=== PATIENT | male | born 1935 | race Caucasian/White ===

== ENCOUNTER 2018-04-27 21:21 | Observation (INO) ==
[2018-04-27] MEDS ORDERED: Sod Chloride 0.9% Inj 1,000 ML IV.CONT SCH (23:15)
--- NOTE | 2018-04-27 23:23 | ED ---
HPI General Chief complaint: GI Bleed Stated complaint: rectal bleeding x 4 hrs Time Seen by Provider: 04/27/18 23:10 Source: patient Mode of arrival: ambulatory Limitations: no limitations History of Present Illness HPI Narrative: 82-year-old male presents to the emergency department by private transportation for complaint of 5 times of red blood per rectum over the past 4 hours. No fever no chills no nausea no vomiting no near syncope or syncope no chest pain or shortness of breath no abdominal pain. Patient states that he has had no trauma or injury. No prior history of GI bleed. Patient has undergone colonoscopy within the past 2 years according to him and reportedly the study was normal. Patient takes aspirin daily but no other blood thinning agents. Patient denies NSAID use. Patient's had no epigastric pain. Patient has had no weight loss or weight change. Patient had no trauma or injury. Patient continues to make good urine output and no flank pain. MD complaint: Reports gross hematochezia Onset (ago): hour(s) (4) Pain Consistency: constant Severity: severe Relieving factors: none Exacerbating factors: none Context: Denies history of GI bleed, liver disease, hemorrhoids, swallowed FB, rectal trauma, alcohol abuse, known esophageal varices, medication/supplement use, foreign travel, unusual food, anticoagulant use and near syncope Associated symptoms: Reports denies other symptoms; Denies abdominal pain, nausea, vomiting, epistaxis, fever, chills, headaches, loss of appetite, malaise , easy bruising, rash, other bleeding, shortness of breath, syncope and weakness Treatments Prior to Arrival: Reports none Related Data Home Medications Medication Instructions Recorded Confirmed Unable to Obtain Home Meds 04/27/18 04/27/18 Allergies Allergy/AdvReac Type Severity Reaction Status Date / Time iodine Allergy Severe Respiratory Unverified 04/27/18 23:10 Failure potassium iodide Allergy Severe Difficulty Unverified 04/27/18 23:10 Breathing povidone-iodine Allergy Severe Difficulty Unverified 04/27/18 23:10 Breathing sodium iodide Allergy Severe Difficulty Unverified 04/27/18 23:10 Breathing sodium iodide Allergy Severe Difficulty Unverified 04/27/18 23:10 Breathing MECURY Allergy Severe Difficulty Uncoded 04/27/18 23:10 Breathing MECUROCHROME / MERTHIOLATE AdvReac Mild Difficulty Uncoded 04/27/18 23:10 Breathing Review of Systems ROS: all other systems reviewed are negative PMFSH History History Provided By: Medical Record (Peripheral vascular disease CAD SDH) Social History Social History Substance History: No History of Abuse Smoking Status: Former smoker How Often Do You Have a Drink Containing Alcohol: Monthly or less Recent Travel in [facility] within the Last 8 Weeks: No Recent Out of Country Travel within the Last 8 Weeks: No Exam Narrative Exam Narrative: GENERAL: Well-nourished, well-developed patient. SKIN: Focused skin assessment warm/dry. HEAD: Normocephalic. EYES: No scleral icterus. No injection or drainage. NECK: Supple, trachea midline. No JVD or lymphadenopathy. CARDIOVASCULAR: Regular rate and rhythm without murmurs, gallops, or rubs. RESPIRATORY: Breath sounds equal bilaterally. No accessory muscle use. GASTROINTESTINAL: Abdomen soft, non-tender, nondistended. Rectal exam: Normal sphincter tone red blood per rectum no clots no fissure no prolapsed hemorrhoids no palpable mass Hemoccult positive MUSCULOSKELETAL: No cyanosis, or edema. BACK: Nontender without obvious deformity. No CVA tenderness. Course Initial Documented Vital Signs Temperature 98.2 F 04/27/18 21:48 Pulse Rate 116 H 04/27/18 21:48 Respiratory Rate 16 04/27/18 21:48 Blood Pressure 170/78 H 04/27/18 21:48 Pulse Oximetry 98 04/27/18 21:48 Last Documented Vital Signs Temperature 98.2 F 04/27/18 21:48 Pulse Rate 102 H 04/28/18 00:10 Respiratory Rate 20 04/28/18 00:10 Blood Pressure 204/84 H 04/28/18 00:10 Pulse Oximetry 99 04/28/18 00:10 Medical Decision Making MDM Narrative Medical decision making narrative: . Patient's case discussed with medicine service for admission Patient does take aspirin daily for history of cardiac disease. No near syncope or syncope. No shortness of breath. No nausea no vomiting no abdominal pain.82-year-old male with larissa red blood per rectum x5 episodes in the past 4 hours. No prior history of rectal bleeding. Colonoscopy 2 years ago was reportedly normal cannot recall who did the study. No prior history of rectal bleeding or GI bleeding. Patient denies NSAID use. Patient placed on hall monitor IV access obtained specimens collected and sent for resulting occluding type and screen patient given a normal saline bolus and placed on Protonix infusion. Concern for lower GI bleed CT abdomen pelvis ordered. Patient complained of heartburn had received Protonix bolus and infusion; Zofran 4 mg IV administered, small amount of stomach contents emesis without coffee-ground emesis or hematemesis; EKG sinus rhythm with no acute ST elevation or injury pattern change noted mild ST segment flattening laterally. Troponin I less than 0.02. CBC is automated differential total white cell count is normal at 6800 hemoglobin stable at 11.5 with a normal range platelet count of 169,000. Coagulation studies are within normal range. Metabolic panel is within normal limits with normal range potassium of 3.8 bicarb of 29 mild elevation of glucose at 188. Creatinine are normal range with a BUN of 14 and a creatinine of 0.86 magnesium is 1.9 within normal limits calcium 8.7 troponin I is performed which is less than 0.02 Chest x-ray is negative for acute process CT abdomen pelvis reveals no acute intra-abdominal process Patient's vital signs have remained stable and will patient will be admitted for lower GI bleed serial hemoglobins and has had type and screen ordered. Patient's case discussed with medicine service for intermediate care admission; at this point time hemoglobin is stable at 11.5 however patient is at high risk for rapid decompensation in view of gross hematochezia. Patient heart rate has improved to 78. Patient reminds hypertensive and cannot recall his home medications. Patient has been typed and screened and in addition 2 units of packed cells have been ordered to be placed on hold patient will be admitted to intermediate care and GI consult in a.m. No further bleeding or tenesmus since initial presentation to the emergency department for evaluation. Medical Screen Exam Complete: Yes Emergency Medical Condition: Yes Differential Diagnosis Differential Diagnosis: Rectal bleeding, anemia, diverticulitis colitis mass upper GI bleed coagulopathy AVM Medical Records Medical records reviewed: Yes I reviewed the patient's medical records. Lab Data Lab results reviewed: Yes I reviewed the patient's lab results. Result diagrams: 04/27/18 23:30 04/27/18 23:30 Lab Results 04/27/18 04/27/18 04/27/18 Range/Units 23:30 23:30 23:30 CBC w Diff Auto diff final WBC 6.8 (4.0-11.0) th/mm3 RBC 3.68 L (4.50-5.90) mil/mm3 Hgb 11.5 L (13.0-17.0) gm/dL Hct 35.5 L (39.0-51.0) % MCV 96.6 (80.0-100.0) fL MCH 31.3 (27.0-34.0) pg MCHC 32.3 (32.0-36.0) % RDW 14.0 (11.6-17.2) % Plt Count 169 (150-450) th/mm3 MPV 8.0 (7.0-11.0) fL Neut % (Auto) 66.0 (16.0-70.0) % Lymph % (Auto) 25.7 (9.0-44.0) % Phelps % (Auto) 6.4 (0.0-8.0) % Eos % (Auto) 1.2 (0.0-4.0) % Baso % (Auto) 0.7 (0.0-2.0) % Neut # (Auto) 4.5 (1.8-7.7) th/mm3 Lymph # (Auto) 1.8 (1.0-4.8) th/mm3 Phelps # (Auto) 0.4 (0.0-0.9) th/mm3 Eos # (Auto) 0.1 (0.0-0.4) th/mm3 Baso # (Auto) 0.0 (0.0-0.2) th/mm3 WBC Differential . Differential Comment . PT 10.4 (9.8-11.6) sec INR 1.0 Ratio APTT 26.1 (23.4-31.7) sec Sodium 138 (136-145) meq/L Potassium 3.8 (3.5-5.1) meq/L Chloride 101 (98-107) meq/L Carbon Dioxide 29.3 (21.0-32.0) meq/L Anion Gap 8 (5-15) meq/L BUN 14 (7-18) mg/dL Creatinine 0.86 (0.60-1.30) mg/dL Estimated GFR 85 L (>89) mL/min Random Glucose 188 H (74-106) mg/dL Calcium 8.7 (8.5-10.1) mg/dL Magnesium 1.9 (1.5-2.5) mg/dL Total Bilirubin 0.4 (0.2-1.0) mg/dL AST 14 L (15-37) U/L ALT 22 (12-78) U/L Alkaline Phosphatase 59 (45-117) U/L Ammonia (11-32) mcmol/L Troponin I Less than 0.02 L (0.02-0.05) ng/mL Total Protein 7.2 (6.4-8.2) g/dL Albumin 3.8 (3.4-5.0) g/dL Lipase 149 (73-393) U/L Blood Type Blood Type Recheck 04/27/18 04/27/18 Range/Units 23:30 23:30 CBC w Diff WBC (4.0-11.0) th/mm3 RBC (4.50-5.90) mil/mm3 Hgb (13.0-17.0) gm/dL Hct (39.0-51.0) % MCV (80.0-100.0) fL MCH (27.0-34.0) pg MCHC (32.0-36.0) % RDW (11.6-17.2) % Plt Count (150-450) th/mm3 MPV (7.0-11.0) fL Neut % (Auto) (16.0-70.0) % Lymph % (Auto) (9.0-44.0) % Phelps % (Auto) (0.0-8.0) % Eos % (Auto) (0.0-4.0) % Baso % (Auto) (0.0-2.0) % Neut # (Auto) (1.8-7.7) th/mm3 Lymph # (Auto) (1.0-4.8) th/mm3 Phelps # (Auto) (0.0-0.9) th/mm3 Eos # (Auto) (0.0-0.4) th/mm3 Baso # (Auto) (0.0-0.2) th/mm3 WBC Differential Differential Comment PT (9.8-11.6) sec INR Ratio APTT (23.4-31.7) sec Sodium (136-145) meq/L Potassium (3.5-5.1) meq/L Chloride (98-107) meq/L Carbon Dioxide (21.0-32.0) meq/L Anion Gap (5-15) meq/L BUN (7-18) mg/dL Creatinine (0.60-1.30) mg/dL Estimated GFR (>89) mL/min Random Glucose (74-106) mg/dL Calcium (8.5-10.1) mg/dL Magnesium (1.5-2.5) mg/dL Total Bilirubin (0.2-1.0) mg/dL AST (15-37) U/L ALT (12-78) U/L Alkaline Phosphatase (45-117) U/L Ammonia Less than 10 L (11-32) mcmol/L Troponin I (0.02-0.05) ng/mL Total Protein (6.4-8.2) g/dL Albumin (3.4-5.0) g/dL Lipase (73-393) U/L Blood Type O Positive Blood Type Recheck Not needed Imaging Data Radiologist's impression: Abdomen/Pelvis CT 04/27/18 23:10 CONCLUSION: 1. No acute abnormality in the abdomen or pelvis. 2. 3 mm subpleural bilateral lung nodules. Sub-6 mm nodules do not require routine follow-up per 2017 Fleischner criteria. 3. Sigmoid diverticulosis without definitive evidence for diverticulitis. 4. Additional ancillary findings, as above. Chest X-Ray 04/27/18 23:10 CONCLUSION: 1. No acute abnormality or significant interval change. ECG Data EKG Prior to Arrival: No Attestation: I personally reviewed and interpreted this ECG as follows: (EKG normal sinus rhythm rate [address] elevation or injury pattern nonspecific ST segment flattening/depression laterally with baseline artifact noted) Discharge Plan Discharge Disposition Patient Disposition: ED Admit(ED Internal Use Only) Discharge Condition Condition: Fair Discharge Order Discharge Orders: ED Use Only Admit Order (Routine); Ordered 04/28/18 Ordered By: Sheron Gardner Discharge Details Diagnosis: Hematochezia Physicians Team ED Provider: Sheron Gardner Primary Care Provider: Regi Gramajo Rxs /Orders / Referrals /Forms Prescriptions: No Action Unable to Obtain Home Meds RF: 0 Status ED Status: With Doctor
--- NOTE | 2018-04-27 23:34 | XR ---
EXAM DATE: 04/27/2018 11:27 PM EST AGE/SEX: 82 years / Male INDICATIONS: Short of breath. CLINICAL DATA: This is the patient's initial encounter. Patient reports that signs and symptoms have been present for 1 day and indicates a pain score of 0/10. MEDICAL/SURGICAL HISTORY: None. None. COMPARISON: [facility] [place], 04/22/2012. . FINDINGS: No significant new focal pleural or parenchymal opacities. Stable median sternotomy wires. The cardio mediastinal contours are unremarkable. Osseous structures are intact. CONCLUSION: 1. No acute abnormality or significant interval change. Electronically signed by: Evan Conway MD Board Certified Radiologist 04/27/2018 11:[address]
[2018-04-27 23:42] LABS: Baso % (Auto) 0.7 % (0.0-2.0); Eos # (Auto) 0.1 th/mm3 (0.0-0.4); Eos % (Auto) 1.2 % (0.0-4.0); Hematocrit 35.5 % (39.0-51.0); Hemoglobin 11.5 gm/dL (13.0-17.0); Lymph # (Auto) 1.8 th/mm3 (1.0-4.8); Lymph % (Auto) 25.7 % (9.0-44.0); Mean Corpuscular HGB Conc 32.3 % (32.0-36.0); Mean Corpuscular Hemoglobin 31.3 pg (27.0-34.0); Mean Corpuscular Volume 96.6 fL (80.0-100.0); Mono # (Auto) 0.4 th/mm3 (0.0-0.9); Mono % (Auto) 6.4 % (0.0-8.0); Neut # (Auto) 4.5 th/mm3 (1.8-7.7); Platelet Count 169 th/mm3 (150-450); Red Blood Count 3.68 mil/mm3 (4.50-5.90); White Blood Count 6.8 th/mm3 (4.0-11.0)
[2018-04-27 23:50] LABS: Chloride 101 meq/L (98-107); Potassium 3.8 meq/L (3.5-5.1); Sodium 138 meq/L (136-145)
[2018-04-27 23:53] LABS: Calcium 8.7 mg/dL (8.5-10.1)
[2018-04-27 23:54] LABS: Albumin 3.8 g/dL (3.4-5.0); Anion Gap 8 meq/L (5-15); Blood Urea Nitrogen 14 mg/dL (7-18); Carbon Dioxide 29.3 meq/L (21.0-32.0); Glucose,Random 188 mg/dL (74-106); Lipase 149 U/L (73-393); Magnesium 1.9 mg/dL (1.5-2.5)
[2018-04-27 23:55] LABS: Activated Partial Thrombo Time 26.1 sec (23.4-31.7); Prothrombin Time 10.4 sec (9.8-11.6)
[2018-04-27 23:56] LABS: Alanine Aminotransferase 22 U/L (12-78); Aspartate Aminotransferase 14 U/L (15-37)
[2018-04-27 23:57] LABS: Glomerular Filtration Rate 85 mL/min (>89)
[2018-04-27 23:58] LABS: Total Protein 7.2 g/dL (6.4-8.2)
[2018-04-27 23:59] LABS: Alkaline Phosphatase 59 U/L (45-117)
[2018-04-28] MEDS: Pantoprazole Inj 80 MG in Sodium Chlor 0.9% Inj 100 ML IV.CONT SCH ×2 (00:27→11:35)
--- NOTE | 2018-04-28 00:27 | CT ---
EXAM DATE: 04/28/2018 12:18 AM EST AGE/SEX: 82 years / Male INDICATIONS: BLOOD IN STOOL CLINICAL DATA: This is the patient's initial encounter. Patient reports that signs and symptoms have been present for 2 days and indicates a pain score of 2/10. MEDICAL/SURGICAL HISTORY: Carcinoma, prostatic. None. RADIATION DOSE: 17.44 CTDI (mGy) COMPARISON: [facility], CTA AORTA W/ [facility], 01/05/2015. . TECHNIQUE: Multiple contiguous axial images were obtained through the abdomen. Images were obtained using multiple row detector helical technique. Using automated exposure control and adjustment of the mA and/or kV according to patient size, radiation dose was kept as low as reasonably achievable to o btain optimal diagnostic quality images. DICOM format image data is available electronically for rev iew and comparison. FINDINGS: LOWER LUNGS: Small 3 mm subpleural nodules bilaterally. LIVER: Diffusely homogeneous density without intrahepatic ductal dilatation or volume loss. SPLEEN: Homogeneous density without enlargement. PANCREAS: Grossly unremarkable. KIDNEYS: Kidneys are symmetrical in size without evidence for radiopaque renal calculi or hydronephr osis. No significant contour deforming renal abnormality. ADRENAL GLANDS: Unremarkable. 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 BOWEL/MESENTERY: Mild to moderate sigmoid diverticulosis without inflammatory change to suggest dive rticulitis. No dilated loops of bowel. The cecum and sigmoid colon have a normal configuration. No si gnificant free fluid or drainable fluid collections. No free air. ABDOMINAL WALL: Intact. BLADDER: Contours are smooth. REPRODUCTIVE: Radiation seeds in place. BONY STRUCTURES: Unremarkable. CONCLUSION: 1. No acute abnormality in the abdomen or pelvis. 2. 3 mm subpleural bilateral lung nodules. Sub-6 mm nodules do not require routine follow-up per 201 7 Fleischner criteria. 3. Sigmoid diverticulosis without definitive evidence for diverticulitis. 4. Additional ancillary findings, as above. Electronically signed by: Evan Conway MD Board Certified Radiologist 04/28/2018 12:25 AM E
[2018-04-28 02:30] LABS: Bilirubin,Urine Negative (Negative); Clarity,Urine Clear (Clear); Color,Urine Yellow (Yellw/Straw); Glucose,Urine (UA) Negative (Negative); Leukocyte Esterase,Urine Negative (Negative); Nitrite,Urine Negative (Negative); Specific Gravity,Urine 1.015 (1.002-1.035)
[2018-04-28] MEDS: Sod Chloride 0.9% Inj 1,000 ML IV.CONT SCH ×3 (02:33→22:35)
[2018-04-28 02:38] LABS: RBC,Urine 0-3 /hpf (0-3); Squamous Epithelial Cell,Urine 0-5 /hpf (0-5); WBC,Urine 0-5 /hpf (0-5)
[2018-04-28 06:31] LABS: Baso # (Auto) 0.1 th/mm3 (0.0-0.2); Baso % (Auto) 0.7 % (0.0-2.0); Eos # (Auto) 0.1 th/mm3 (0.0-0.4); Eos % (Auto) 0.6 % (0.0-4.0); Hematocrit 30.8 % (39.0-51.0); Hemoglobin 10.3 gm/dL (13.0-17.0); Lymph # (Auto) 1.3 th/mm3 (1.0-4.8); Lymph % (Auto) 13.9 % (9.0-44.0); Mean Corpuscular HGB Conc 33.3 % (32.0-36.0); Mean Corpuscular Hemoglobin 31.5 pg (27.0-34.0); Mean Corpuscular Volume 94.5 fL (80.0-100.0); Mean Platelet Volume 7.6 fL (7.0-11.0); Mono # (Auto) 0.6 th/mm3 (0.0-0.9); Mono % (Auto) 5.9 % (0.0-8.0); Neut # (Auto) 7.3 th/mm3 (1.8-7.7); Neut % (Auto) 78.9 % (16.0-70.0); Platelet Count 168 th/mm3 (150-450); Red Blood Count 3.26 mil/mm3 (4.50-5.90); Red Cell Distribution Width 13.8 % (11.6-17.2); White Blood Count 9.4 th/mm3 (4.0-11.0)
[2018-04-28 06:43] LABS: Chloride 106 meq/L (98-107); Potassium 4.1 meq/L (3.5-5.1); Sodium 140 meq/L (136-145)
[2018-04-28 06:46] LABS: Calcium 8.1 mg/dL (8.5-10.1)
[2018-04-28 06:47] LABS: Anion Gap 9 meq/L (5-15); Blood Urea Nitrogen 12 mg/dL (7-18); Carbon Dioxide 24.8 meq/L (21.0-32.0); Glucose,Random 214 mg/dL (74-106)
[2018-04-28 06:50] LABS: Glomerular Filtration Rate Greater Than 89 mL/min (>89)
[2018-04-28] MEDS ORDERED: Pantoprazole Inj 40 MG Vial IV.PUSH SCH (09:00)
--- NOTE | 2018-04-28 09:45 | P.HPIM ---
History of Present Illness Primary Care Physician: Regi Gramajo History of Present Illness: This is an 82-year-old male, poor historian, presented to the hospital yesterday for 5 episodes of hematochezia/larissa blood per rectum about 1 cup total without any abdominal pain. He has mild weakness , but no nausea/vomiting, no bleeding anywhere else. No fever, chills, dysuria , frequency, urgency, chest pain, shortness of breath. He is not on any anticoagulation other than aspirin. No prior history of GI bleeding. He allegedly had a colonoscopy 2 years ago, allegedly normal, no history of NSAID use. Patient is a poor historian agrees to receiving blood if needed. Minimal history is taken because of patient being a poor historian. This morning, patient had another episode of bloody bowel movement. Diagnosis (1) GI bleeding: Inpatient Certification Inpatient Certification: I certify that the inpatient services were ordered in accordance with Medicare regulations governing the order. This includes certification that hospital inpatient services are reasonable and necessary and in the case of services not specified as inpatient-only under 42 CFR 419.22(n), that they are appropriately provided as inpatient services in accordance to with the 2-midnight benchmark under 43 CFR 412.3(e) Estimated Total Length of Stay (Days): 2 Plans for Post Hospital Care: Not yet determined Review of Systems Review of Systems: all other systems reviewed are negative [facility] Social History Social History Substance History: No History of Abuse Second Hand Smoke Exposure: No Smoking Status: Former smoker Tobacco Type: Cigarettes How Often Do You Have a Drink Containing Alcohol: Monthly or less Recent Travel in [facility] within the Last 8 Weeks: No Recent Out of Country Travel within the Last 8 Weeks: No Immunization History Tetanus Immunization: Unsure Hx Influenza Vaccine This Season: Yes Medications and Allergies Allergies Allergy/AdvReac Type Severity Reaction Status Date / Time iodine Allergy Severe Respiratory Unverified 04/27/18 23:10 Failure potassium iodide Allergy Severe Difficulty Unverified 04/27/18 23:10 Breathing povidone-iodine Allergy Severe Difficulty Unverified 04/27/18 23:10 Breathing sodium iodide Allergy Severe Difficulty Unverified 04/27/18 23:10 Breathing sodium iodide Allergy Severe Difficulty Unverified 04/27/18 23:10 Breathing MECURY Allergy Severe Difficulty Uncoded 04/27/18 23:10 Breathing MECUROCHROME / MERTHIOLATE AdvReac Mild Difficulty Uncoded 04/27/18 23:10 Breathing Home Medications Medication Instructions Recorded Confirmed Type Unable to Obtain Home Meds 04/27/18 04/27/18 History Active Medications: Active Medications Pantoprazole Sodium 80 mg/ (Sodium Chloride) 100 mls @ 10 mls/hr IV.CONT CONT WOOD Last Admin: 04/28/18 00:27 Dose: 10 mls/hr Sodium Chloride (Ns Inj) 1,000 mls @ 100 mls/hr IV.CONT .Q10H WOOD Last Admin: 04/28/18 02:33 Dose: 100 mls/hr Ondansetron HCl (Zofran Inj) 4 mg IV.PUSH Q6H PRN PRN Reason: NAUSEA Pantoprazole Sodium (Protonix Inj) 40 mg IV.PUSH DAILY WOOD Sodium Chloride (Ns Flush) 2 ml IV.FLUSH BID WOOD Sodium Chloride (Ns Flush) 2 ml IV.FLUSH PRN PRN PRN Reason: FLUSH AFTER USING IV ACCESS Physical Exam Vital signs: Last Vital Signs Temp 99.3 F 04/28/18 02:17 Pulse 98 H 04/28/18 06:00 Resp 13 04/28/18 06:00 BP 91/44 L 04/28/18 06:00 Pulse Ox 100 04/28/18 04:01 Intake & Output 04/26/18 04/27/18 04/28/18 04/29/18 06:59 06:59 06:59 06:59 Output Total 750 / 750 Balance -750 / -750 Weight 79.7 kg Narrative: Not in distress, well-nourished, looks stated age PERRL, pink conjunctiva without injection, anicteric Nose without bleeding, airway patent Supple neck Normal rate and regular rhythm, no murmurs gallops or rubs appreciated. Clear to auscultation and symmetric bilaterally, normal respiratory effort. Normal bowel sounds, soft, non-tender, nondistended, no guarding. Extremities without clubbing, cyanosis, or edema. No rash of generalized distribution. Skin is warm and dry. AAO x3, no cranial nerve deficits, moves all 4 extremities, no focal neurologic deficits Results Labs CBC & Chem 7: 04/28/18 06:20 04/28/18 06:20 Imaging Impressions Abdomen/Pelvis CT 04/27/18 23:10 CONCLUSION: 1. No acute abnormality in the abdomen or pelvis. 2. 3 mm subpleural bilateral lung nodules. Sub-6 mm nodules do not require routine follow-up per 2017 Fleischner criteria. 3. Sigmoid diverticulosis without definitive evidence for diverticulitis. 4. Additional ancillary findings, as above. Chest X-Ray 04/27/18 23:10 CONCLUSION: 1. No acute abnormality or significant interval change. Caprini VTE Risk Assessment Caprini VTE Risk Assessment: Moderate/High Risk (score >= 2) Caprini Risk Assessment Model: Point Value = 1 Point Value = 2 Point Value = 3 Point Value = 5 Age 41-60 Minor surgery BMI > 25 kg/m2 Swollen legs Varicose veins or History of unexplained or recurrent spontaneous Oral contraceptives or hormone replacement Sepsis (< 1 month) Serious lung disease, including pneumonia (< 1 month) Abnormal pulmonary function Acute myocardial infarction Congestive heart failure (< 1 month) History of inflammatory bowel disease Medical patient at bed rest Age 61-74 Arthroscopic surgery Major open surgery (> 45 min) Laparoscopic surgery (> 45 min) Malignancy Confined to bed (> 72 hours) Immobilizing plaster cast Central venous access Age >= 75 History of VTE Family history of VTE Factor V Leiden Prothrombin [id number] Lupus anticoagulant Anticardiolipin antibodies Elevated serum homocysteine Heparin-induced thrombocytopenia Other congenital or acquired thrombophilia Stroke (< 1 month) Elective arthroplasty Hip, pelvis, or leg fracture Acute spinal cord injury (< 1 month) Prophylaxis Regimen: Total Risk Factor Score Risk Level Prophylaxis Regimen 0-1 Low Early ambulation 2 Moderate Order ONE of the following: *Sequential Compression Device (SCD) *Heparin 5000 units SQ BID 3-4 Higher Order ONE of the following medications: *Heparin 5000 units SQ TID *Enoxaparin/Lovenox 40 mg SQ daily (WT < 150 kg, CrCl > 30 mL/min) *Enoxaparin/Lovenox 30 mg SQ daily (WT < 150 kg, CrCl > 10-29 mL/min) *Enoxaparin/Lovenox 30 mg SQ BID (WT < 150 kg, CrCl > 30 mL/min) AND/OR *Sequential Compression Device (SCD) 5 or more Highest Order ONE of the following medications: *Heparin 5000 units SQ TID (Preferred with Epidurals) *Enoxaparin/Lovenox 40 mg SQ daily (WT < 150 kg, CrCl > 30 mL/min) *Enoxaparin/Lovenox 30 mg SQ daily (WT < 150 kg, CrCl > 10-29 mL/min) *Enoxaparin/Lovenox 30 mg SQ BID (WT < 150 kg, CrCl > 30 mL/min) AND *Sequential Compression Device (SCD) Assessment and Plan (1) GI bleeding: Code(s): K92.2 - Gastrointestinal hemorrhage, unspecified Status: Acute Plan This is an 82-year-old male with no significant, rate is presenting with larissa bright red blood per rectum. GI bleeding, likely lower-no abdominal pain, still having hematochezia, check hemoglobin and hematocrit every 6 hours, transfuse as needed, patient agreed. INR within normal limits. Previously had a colonoscopy 2 years ago, allegedly normal. Consult gastroenterology. Chest x-ray personally reviewed unremarkable , CT scan of the abdomen and pelvis no acute abnormality other than bilateral lung nodules. Patient has sigmoid diverticulosis but no abdominal pain, no leukocytosis, doubt diverticulitis. Keep NPO, symptomatic management, continue Protonix drip for now, recheck CBC tomorrow. Bilateral pulmonary [id number] as outpatient. Hyperglycemia-? History of diabetes, monitor. SSI Hypertension-Vasotec as needed, medications need to be reconciled. Pharmacological prophylaxis contraindicated, SCDs for now. H&P: Quality VTE Deep Vein Thrombosis/Pulmonary Embolism Present on Admission: No
[2018-04-28] MEDS ORDERED: Dextrose 50% in Water 50 ML Vial IV.PUSH PRN (09:48)
[2018-04-28 11:29] LABS: Hematocrit 30.3 % (39.0-51.0); Hemoglobin 10.1 gm/dL (13.0-17.0)
--- NOTE | 2018-04-28 13:45 | ECG ---
Date Performed: 04/28/2018 Time Performed: 00:21:01 PTAGE: 82 years EKG: Sinus rhythm WITH OCCASIONAL SUPRAVENTRICULAR PREMATURE COMPLEXES MODERATE ST DEPRESSION ABNORMAL ECG Compared to PREVIOUS TRACING , the RI interval is shorter, nonspecific ST changes are somewhat more p rominent. PREVIOUS TRACIN02/20/2015 07.29 DOCTOR: Tyler Enrique Interpretating Date/Time 04/28/2018 13:44:34
[2018-04-28] MEDS: Insulin NovoLIN Regular Correctional Sugar Inj SQ SCH ×2 (13:58→17:16)
[2018-04-28 17:19] LABS: Hematocrit 30.1 % (39.0-51.0); Hemoglobin 10.1 gm/dL (13.0-17.0)
[2018-04-28 23:30] LABS: Hematocrit 25.9 % (39.0-51.0); Hemoglobin 8.7 gm/dL (13.0-17.0)
[2018-04-29] MEDS: Insulin NovoLIN Regular Correctional Sugar Inj SQ SCH ×5 (01:27→19:37)
[2018-04-29] MEDS: Sod Chloride 0.9% Inj 1,000 ML IV.CONT SCH ×2 (09:47→19:19)
[2018-04-29 11:17] LABS: Hematocrit 27.2 % (39.0-51.0); Mean Corpuscular HGB Conc 33.1 % (32.0-36.0); Mean Corpuscular Hemoglobin 31.8 pg (27.0-34.0); Mean Corpuscular Volume 96.2 fL (80.0-100.0); Mean Platelet Volume 7.6 fL (7.0-11.0); Platelet Count 152 th/mm3 (150-450); Red Blood Count 2.82 mil/mm3 (4.50-5.90); Red Cell Distribution Width 13.6 % (11.6-17.2); White Blood Count 4.6 th/mm3 (4.0-11.0)
--- NOTE | 2018-04-29 12:11 | P.PNIM ---
Subjective Interval history: Patient says he is feeling right. Reports continued hematochezia. Denies any abdominal pain. Denies any chest pain or shortness of breath. Denies nausea or vomiting. Physical Exam Vital signs: Vital Signs 04/28/18 13:01 04/28/18 16:00 04/28/18 20:00 Temperature 98.8 F 97.9 F Pulse Rate 72 69 55 L Respiratory Rate 11 L 19 16 Blood Pressure 128/56 L 161/68 H 144/81 H Pulse Oximetry 99 94 L 04/29/18 00:00 04/29/18 08:00 Temperature 98.0 F 97.8 F Pulse Rate 60 60 Respiratory Rate 16 16 Blood Pressure 131/71 139/63 Pulse Oximetry 94 L 96 Intake & Output 04/28/18 04/29/18 04/29/18 18:59 06:59 18:59 Intake Total 2100 / 2100 1100 / 1100 1000 / 1000 Output Total 500 / 500 Balance 1600 / 1600 1100 / 1100 1000 / 1000 Intake: IV 2100 / 2100 1100 / 1100 1000 / 1000 Protonix Inj 80 MG In NS Inj 100 / 100 100 / 100 100 ML @ 10 mls/hr IV.CONT CONT WOOD Rx#:[id number] NS Inj 1,000 ML @ 100 mls/hr IV 1000 / 1000 1000 / 1000 1000 / 1000 .CONT .Q10H WOOD Rx#:[id number] Oral 0 / 0 Output: Urine 500 / 500 Other: # Voids 1 # Incontinent Voids 1 # Urine Diapers 1 Date of Last Bowel Movement 04/28/18 # Bowel Movements 1 Narrative: GENERAL: Patient sitting up in bed. Appears comfortable. SKIN: Warm and dry. HEAD: Normocephalic. EYES: No scleral icterus. No injection or drainage. NECK: Supple, trachea midline. No JVD CARDIOVASCULAR: Regular rate and rhythm without murmurs, gallops, or rubs. RESPIRATORY: Breath sounds equal bilaterally. No accessory muscle use. GASTROINTESTINAL: Abdomen soft, non-tender, nondistended. Positive bowel sounds. MUSCULOSKELETAL: No cyanosis, or edema. BACK: Nontender without obvious deformity. No CVA tenderness. Results - Labs CBC & Chem 7: 04/29/18 10:45 04/28/18 06:20 Laboratory Results - last 24 hr 12/25/18 12/25/18 12/25/18 12:36 16:17 17:10 WBC RBC Hgb 10.1 L Hct 30.1 L MCV MCH MCHC RDW Plt Count MPV POC Glucose 143 H 125 H 04/28/18 04/29/18 04/29/18 23:15 01:26 06:30 WBC RBC Hgb 8.7 L Hct 25.9 L MCV MCH MCHC RDW Plt Count MPV POC Glucose 111 H 131 H 04/29/18 10:45 WBC 4.6 RBC 2.82 L Hgb 9.0 L Hct 27.2 L MCV 96.2 MCH 31.8 MCHC 33.1 RDW 13.6 Plt Count 152 MPV 7.6 POC Glucose Assessment and Plan - Assessment (1) GI bleeding Code(s): K92.2 - Gastrointestinal hemorrhage, unspecified Status: Acute - Plan This is an 82-year-old male with no significant, rate is presenting with larissa bright red blood per rectum. //GI bleeding, likely lower-no abdominal pain, still having hematochezia, check hemoglobin and hematocrit every 6 hours, transfuse as needed, patient agreed. INR within normal limits. Previously had a colonoscopy 2 years ago, allegedly normal. Consult gastroenterology. Chest x-ray personally reviewed unremarkable , CT scan of the abdomen and pelvis no acute abnormality other than bilateral lung nodules. Patient has sigmoid diverticulosis but no abdominal pain, no leukocytosis, doubt diverticulitis. Keep NPO, symptomatic management, continue Protonix drip for now, recheck CBC tomorrow. = Hemoglobin at 9.0. Overall stable. Dropped from 11.5-8.7 yesterday however. Patient still with hematochezia. Follow-up with gastroenterology recommendations. Patient continues n.p.o. Continue Protonix drip //Bilateral pulmonary [id number] as outpatient. //Hyperglycemia-? History of diabetes, monitor. SSI = Glucose acceptable. Continue to monitor. //Hypertension-Vasotec as needed, medications need to be reconciled. //Chronic medical conditions including parkinsonism BPH. Continue home medications. Pharmacological prophylaxis contraindicated, SCDs for now. Discussed Condition With: Patient, nurse. Discharge Planning: Pending GI clearance and stability and hemoglobin.
[2018-04-29] MEDS ORDERED: PEG 3350/E-Lyte Soln 4000 ML Bottle PO ONE (14:15)
--- NOTE | 2018-04-29 14:57 | MB ---
cc: Madi Lockett MD, Harry MD DATE: 04/29/2018 He does not know the name of his primary care doctor. HISTORY OF PRESENT ILLNESS: This is a pleasant 82-year-old white male who I was asked to see for further evaluation and management of hematochezia. Two days ago, he began passing red blood per rectum. In between then and yesterday, he passed red blood 4 times. He has had no pain or bloating or nausea or vomiting or fever. This has never happened before. This morning, he has had no bowel movements at all. PAST MEDICAL HISTORY: Significant for hypertension, hyperlipidemia, prostate cancer, status post radiation therapy. He tells me he has diabetes. MEDICATIONS AT HOME: Include: 1. Risperidone. 2. Baby aspirin. 3. Metoprolol. 4. Ranitidine. 5. Donepezil. 6. Pravastatin. 7. Lisinopril. 8. Lamotrigine. 9. Pantoprazole 40 mg daily. 10. Glimepiride. 11. Tamsulosin. MEDICINES: Currently: 1. Donepezil. 2. Vasotec. 3. Glucagon. 4. Insulin. 5. Lamotrigine. 6. Lisinopril. 7. Metoprolol. 8. Ondansetron. 9. Pantoprazole IV. 10. Pravastatin. 11. Risperidone. 12. Tamsulosin. ALLERGIES: IODINE, MERCURY, MERCUROCHROME, MERTHIOLATE. SOCIAL HISTORY: Tobacco use, none. Alcohol use, very little. He tells me his last colonoscopy was performed 2 years ago; but, when he was in our office 2 years ago at that point, he told us it was 2 years before that, so it has been at least 4 years. He does not recall any polyps having been found. REVIEW OF SYSTEMS: He has had no history of seizures or strokes. No recent headaches. No vision difficulties. No dysphagia or odynophagia. He has had some heartburn, though uses Tums in addition to the Protonix and Zantac. No abdominal pain. No respiratory difficulties. No chest pains or palpitations. No urinary symptoms. No joint pains. No new rashes. No unexplained weight loss. He denies history of liver disease, pancreatic disease, adrenal disease; and, as mentioned, his last colonoscopy was at least 4 years ago. He does not recall of any polyps having been removed. PHYSICAL EXAMINATION: VITAL SIGNS: His weight is 79.7 kg, temperature 98.4, pulse 58, blood pressure 151/59, respiratory rate of 18. GENERAL: He is alert. He is oriented x3. He is somewhat pale. HEENT: He is anicteric. Extraocular motions are intact. I appreciate no submandibular, cervical, supraclavicular, axillary, or epitrochlear adenopathy. LUNGS: Clear to auscultation. HEART: Regular rate and rhythm with no gross murmur or gallop. ABDOMEN: Good bowel sounds with no appreciable bruit. The abdomen is soft. I appreciate no tenderness. No hepatosplenomegaly are noted. No masses are palpable. EXTREMITIES: No pedal edema. He does have mild bilateral Dupuytren contractures, but no palmar erythema. LABORATORY STUDIES: On admission 04/27/2018, his hemoglobin was 11.5 with an MCV of 96.6. Yesterday, hemoglobin was 10.3, but last night it was 8.7 and this morning it is 9.0. Platelets normal at 168 yesterday. INR was 1.0 on admission. Sodium yesterday was 140, potassium 4.1, BUN 12, creatinine 0.81, CT of the abdomen and pelvis revealed no acute abnormalities. Sigmoid diverticulosis was noted without diverticulitis. The liver was diffusely homogeneous without ductal dilation or volume loss. The spleen was unremarkable. The pancreas was unremarkable. The kidneys were unremarkable. 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 This reportedly was noted previously. Radiation seeds were noted in the prostate. Bony structures were unremarkable. IMPRESSION: Painless hematochezia in this patient with history of documented diverticulosis who has also received radiation therapy for prostate cancer. We discussed diverticular bleeding as well as bleeding related to angiodysplasias from the prostate radiation therapy. We also discussed spontaneous vascular malformations and the smaller chance of a neoplastic process. PLAN: Schedule colonoscopy for tomorrow. I discussed the procedure with the patient including potential risks of medication reaction, bleeding, perforation, and a small chance of missing a lesion. MD ISHAN Jackson/pio , 02:04 PM , 02:15 PM TAD
[2018-04-29] MEDS ORDERED: Metoprolol Tartrate 25 MG Tablet PO SCH (21:00)
[2018-04-30] MEDS: Pantoprazole Inj 80 MG in Sodium Chlor 0.9% Inj 100 ML IV.CONT SCH ×2 (00:29→12:23)
[2018-04-30] MEDS: Insulin NovoLIN Regular Correctional Sugar Inj SQ SCH ×3 (00:35→11:06)
[2018-04-30] MEDS ORDERED: Chlorhexidine Gluconate 2% 1 Pack (2 Cloths) TOPICAL ONE (07:32)
[2018-04-30] MEDS ORDERED: Sodium Chlor 0.9% Inj 500 ML IV.SIG SCH (08:00)
--- NOTE | 2018-04-30 08:40 | MR ---
cc: Madi Lockett MD DATE: 04/30/2018 PROCEDURE: Colonoscopy with biopsy. SURGEON: Dr. Madi Lockett. INDICATIONS FOR PROCEDURE: The patient is an inpatient. Painless hematochezia. His last colonoscopy was over 4 years ago. MEDICATIONS: Sedation per Anesthesiology. INSTRUMENT: The Pentax video colonoscope. DETAILS OF PROCEDURE: After obtaining written informed consent, the patient was placed in the left lateral decubitus position. Adequate sedation was administered. A digital rectal examination was performed. No gross lesions were noted. The colonoscope was placed into the anus and telangiectasias related to his prior radiation therapy were noted in the distal rectum and at the anal verge. The instrument was advanced slowly through a tortuous colon to the cecum. The cecal base and ileocecal valve appeared normal. Upon withdrawal of the instrument, the mucosal surfaces were well visualized. Diverticulosis of significant degree was noted from the transverse colon to the sigmoid colon. A diminutive transverse colon polyp was removed with one bite of the biopsy forceps. The instrument was slowly withdrawn and removed. The procedure was terminated. He tolerated it well and there were no apparent complications. Upon completion, he was sedated and had normal stable vital signs. IMPRESSION: 1. Colonoscopy to cecum. 2. Diverticulosis from the sigmoid to the transverse colon. 3. Diminutive transverse colon polyp, removed with biopsy forceps. 4. Radiation telangiectasias in the rectum and at the anal verge. 5. I suspect his bleeding was related to diverticular bleed. There was evidence of yellow liquid throughout the colon. DISPOSITION: He is to be observed per routine postprocedure protocol and may return to his room. A high-fiber diet may be started. Once his hemoglobin is stable, he will be discharged home from the GI standpoint. MD ISHAN Jackson/vonnie , 08:19 AM , 08:25 AM
[2018-04-30 08:59] VITALS: BP 151/87; PULSE 95; RESP 16; TEMP 98.9; O2SAT 100
[2018-04-30] MEDS ORDERED: Lisinopril 5 MG Tablet PO SCH (09:00)
[2018-04-30] MEDS ORDERED: lamoTRIgine 100 MG Tablet PO SCH (09:00)
[2018-04-30 09:21] LABS: Baso # (Auto) 0.1 th/mm3 (0.0-0.2); Baso % (Auto) 0.9 % (0.0-2.0); Eos # (Auto) 0.1 th/mm3 (0.0-0.4); Eos % (Auto) 1.2 % (0.0-4.0); Hematocrit 30.4 % (39.0-51.0); Hemoglobin 10.3 gm/dL (13.0-17.0); Lymph # (Auto) 2.7 th/mm3 (1.0-4.8); Lymph % (Auto) 26.3 % (9.0-44.0); Mean Corpuscular HGB Conc 33.8 % (32.0-36.0); Mean Corpuscular Hemoglobin 32.7 pg (27.0-34.0); Mean Corpuscular Volume 96.5 fL (80.0-100.0); Mean Platelet Volume 8.2 fL (7.0-11.0); Mono # (Auto) 0.6 th/mm3 (0.0-0.9); Mono % (Auto) 6.3 % (0.0-8.0); Neut # (Auto) 6.7 th/mm3 (1.8-7.7); Neut % (Auto) 65.3 % (16.0-70.0); Platelet Count 159 th/mm3 (150-450); Red Blood Count 3.15 mil/mm3 (4.50-5.90); Red Cell Distribution Width 13.3 % (11.6-17.2); White Blood Count 10.2 th/mm3 (4.0-11.0)
[2018-04-30 09:57] LABS: Chloride 108 meq/L (98-107); Potassium 3.5 meq/L (3.5-5.1); Sodium 141 meq/L (136-145)
[2018-04-30 10:06] LABS: Albumin 3.6 g/dL (3.4-5.0); Anion Gap 10 meq/L (5-15); Calcium 8.5 mg/dL (8.5-10.1); Carbon Dioxide 23.5 meq/L (21.0-32.0)
[2018-04-30 10:07] LABS: Blood Urea Nitrogen 6 mg/dL (7-18); Glucose,Random 120 mg/dL (74-106); Magnesium 1.8 mg/dL (1.5-2.5)
[2018-04-30 10:09] LABS: Aspartate Aminotransferase 22 U/L (15-37); Glomerular Filtration Rate Greater Than 89 mL/min (>89)
[2018-04-30 10:10] LABS: Phosphorus 2.1 mg/dL (2.5-4.9)
[2018-04-30 10:11] LABS: Alanine Aminotransferase 20 U/L (12-78); Total Protein 6.5 g/dL (6.4-8.2)
[2018-04-30 10:12] LABS: Alkaline Phosphatase 54 U/L (45-117)
[2018-04-30] MEDS: Sod Chloride 0.9% Inj 1,000 ML IV.CONT SCH (11:27)
--- NOTE | 2018-04-30 12:46 | P.PNIM ---
Subjective Interval history: Patient says he is feeling well. Denies any chest pain or shortness of breath. Physical Exam Vital signs: Vital Signs 04/29/18 15:59 04/29/18 20:00 04/30/18 00:00 Temperature 97.9 F 99.1 F 98.5 F Pulse Rate 68 96 H 62 Respiratory Rate 18 18 18 Blood Pressure 157/73 H 115/55 L 98/56 L Pulse Oximetry 98 98 98 04/30/18 06:40 04/30/18 08:28 04/30/18 08:48 Temperature 98.3 F 98.9 F 98.9 F Pulse Rate 73 96 H 95 H Respiratory Rate 18 15 16 Blood Pressure 156/75 H 126/90 151/87 H Pulse Oximetry 98 100 100 Intake & Output 04/29/18 04/30/18 04/30/18 18:59 06:59 18:59 Intake Total 1200 / 1200 1000 / 1000 500 / 500 Balance 1200 / 1200 1000 / 1000 500 / 500 Intake: IV 1000 / 1000 1000 / 1000 100 / 100 Protonix Inj 80 MG In NS Inj 100 / 100 100 ML @ 10 mls/hr IV.CONT Q10H WOOD Rx#:[id number] NS Inj 1,000 ML @ 100 mls/hr IV 1000 / 1000 1000 / 1000 .CONT .Q10H WOOD Rx#:[id number] Oral 200 / 200 Anesthesia Amount 400 / 400 Other: # Voids 425 3 # Bowel Movements 2 5 Narrative: GENERAL: Patient sitting up in bed. Appears comfortable. aaox4. SKIN: Warm and dry. HEAD: Normocephalic. EYES: No scleral icterus. No injection or drainage. NECK: Supple, trachea midline. No JVD CARDIOVASCULAR: Regular rate and rhythm without murmurs, gallops, or rubs. RESPIRATORY: Breath sounds equal bilaterally. No accessory muscle use. GASTROINTESTINAL: Abdomen soft, non-tender, nondistended. Positive bowel sounds. MUSCULOSKELETAL: No cyanosis, or edema. BACK: Nontender without obvious deformity. No CVA tenderness. Results - Labs CBC & Chem 7: 04/30/18 09:15 04/30/18 09:15 Laboratory Results - last 24 hr 04/29/18 04/29/18 04/29/18 15:05 19:08 20:40 CBC w Diff WBC RBC Hgb 9.1 L Hct MCV MCH MCHC RDW Plt Count MPV Neut % (Auto) Lymph % (Auto) [place] % (Auto) Eos % (Auto) Baso % (Auto) Neut # (Auto) Lymph # (Auto) [place] # (Auto) Eos # (Auto) Baso # (Auto) WBC Differential Differential Comment Sodium Potassium Chloride Carbon Dioxide Anion Gap BUN Creatinine Estimated GFR POC Glucose 124 H 205 H Random Glucose Calcium Phosphorus Magnesium Total Bilirubin Direct Bilirubin Indirect Bilirubin AST ALT Alkaline Phosphatase Total Protein Albumin 04/30/18 04/30/18 04/30/18 00:31 06:17 09:15 CBC w Diff Auto diff final WBC 10.2 D RBC 3.15 L Hgb 10.3 L Hct 30.4 L MCV 96.5 MCH 32.7 MCHC 33.8 RDW 13.3 Plt Count 159 MPV 8.2 Neut % (Auto) 65.3 Lymph % (Auto) 26.3 [place] % (Auto) 6.3 Eos % (Auto) 1.2 Baso % (Auto) 0.9 Neut # (Auto) 6.7 Lymph # (Auto) 2.7 [place] # (Auto) 0.6 Eos # (Auto) 0.1 Baso # (Auto) 0.1 WBC Differential . Differential Comment . Sodium Potassium Chloride Carbon Dioxide Anion Gap BUN Creatinine Estimated GFR POC Glucose 120 H 113 H Random Glucose Calcium Phosphorus Magnesium Total Bilirubin Direct Bilirubin Indirect Bilirubin AST ALT Alkaline Phosphatase Total Protein Albumin 04/30/18 04/30/18 09:15 11:04 CBC w Diff WBC RBC Hgb Hct MCV MCH MCHC RDW Plt Count MPV Neut % (Auto) Lymph % (Auto) [place] % (Auto) Eos % (Auto) Baso % (Auto) Neut # (Auto) Lymph # (Auto) [place] # (Auto) Eos # (Auto) Baso # (Auto) WBC Differential Differential Comment Sodium 141 Potassium 3.5 Chloride 108 H Carbon Dioxide 23.5 Anion Gap 10 BUN 6 L Creatinine 0.75 Estimated GFR Greater than 89 POC Glucose 153 H Random Glucose 120 H Calcium 8.5 Phosphorus 2.1 L Magnesium 1.8 Total Bilirubin 1.0 Direct Bilirubin 0.2 Indirect Bilirubin 0.8 AST 22 ALT 20 Alkaline Phosphatase 54 Total Protein 6.5 D Albumin 3.6 Assessment and Plan - Assessment (1) GI bleeding Code(s): K92.2 - Gastrointestinal hemorrhage, unspecified Status: Acute - Plan This is an 82-year-old male with no significant, rate is presenting with larissa bright red blood per rectum. //GI bleeding, likely lower-no abdominal pain, still having hematochezia, check hemoglobin and hematocrit every 6 hours, transfuse as needed, patient agreed. INR within normal limits. Previously had a colonoscopy 2 years ago, allegedly normal. Consult gastroenterology. Chest x-ray personally reviewed unremarkable , CT scan of the abdomen and pelvis no acute abnormality other than bilateral lung nodules. Patient has sigmoid diverticulosis but no abdominal pain, no leukocytosis, doubt diverticulitis. Keep NPO, symptomatic management, continue Protonix drip for now, recheck CBC tomorrow. = Hemoglobin at 9.0. Overall stable. Dropped from 11.5-8.7 yesterday however. Patient still with hematochezia. Follow-up with gastroenterology recommendations. Patient continues n.p.o. Continue Protonix drip =colo with diverticula. extensive cv history, cabg, PAD. discussed risks of stroke, [place], limb ischemia, . pt opts to hold asa for now until f/u with PCP. //AOC anemia. h/h improved to 10 off asa. ferritin, iron profiel, b12 pending at [place]. f/u pcp //Bilateral pulmonary [id number] as outpatient. patient conveys understanding. //Hyperglycemia-? History of diabetes, monitor. SSI = Glucose acceptable. Continue to monitor. //Hypertension-Vasotec as needed, medications need to be reconciled. //Chronic medical conditions including parkinsonism BPH. Continue home medications. Pharmacological prophylaxis contraindicated, SCDs for now. Discharge Planning: f/u gi, pcp, cardiology as outpt for consideration of restarting asa.
--- NOTE | 2018-04-30 12:47 | P.DS ---
Date of admission: 04/28/18 01:05 Primary care physician: Regi Gramajo Brief History from admission: This is an 82-year-old male, poor historian, presented to the hospital yesterday for 5 episodes of hematochezia/larissa blood per rectum about 1 cup total without any abdominal pain. He has mild weakness, but no nausea/vomiting , no bleeding anywhere else. No fever, chills, dysuria, frequency, urgency, chest pain, shortness of breath. He is not on any anticoagulation other than aspirin. No prior history of GI bleeding. He allegedly had a colonoscopy 2 years ago, allegedly normal, no history of NSAID use. Patient is a poor historian agrees to receiving blood if needed. Minimal history is taken because of patient being a poor historian. This morning, patient had another episode of bloody bowel movement. DS: Diagnosis - Discharge Diagnosis (1) GI bleeding Status: Acute DS: Summary Hospital Course: Patient presented with hematochezia, larissa blood per rectum. Aspirin was held during admission. Gastroenterology was consulted and patient underwent colonoscopy which shows diverticula. Incidental finding of small 3 mm lung nodules which do not require follow-up per current criteria. Bleeding improved , hemoglobin dipped slightly to 8.7 during admission, however improved to 10.3 at discharge. Patient does have extensive coronary artery disease -risks and benefits of discontinuing aspirin were discussed, however opts to hold off on aspirin at this time. For problem-based summary from most recent progress note, please see below. This is an 82-year-old male with no significant, rate is presenting with larissa bright red blood per rectum. //GI bleeding, likely lower-no abdominal pain, still having hematochezia, check hemoglobin and hematocrit every 6 hours, transfuse as needed, patient agreed. INR within normal limits. Previously had a colonoscopy 2 years ago, allegedly normal. Consult gastroenterology. Chest x-ray personally reviewed unremarkable , CT scan of the abdomen and pelvis no acute abnormality other than bilateral lung nodules. Patient has sigmoid diverticulosis but no abdominal pain, no leukocytosis, doubt diverticulitis. Keep NPO, symptomatic management, continue Protonix drip for now, recheck CBC tomorrow. = Hemoglobin at 9.0. Overall stable. Dropped from 11.5-8.7 yesterday however. Patient still with hematochezia. Follow-up with gastroenterology recommendations. Patient continues n.p.o. Continue Protonix drip =colo with diverticula. extensive cv history, cabg, PAD. discussed risks of stroke, [place], limb ischemia, . pt opts to hold asa for now until f/u with PCP. //AOC anemia. h/h improved to 10 off asa. ferritin, iron profiel, b12 pending at [place]. f/u pcp //Bilateral pulmonary pkhoekv-ibxuac-em as outpatient. patient conveys understanding. //Hyperglycemia-? History of diabetes, monitor. SSI = Glucose acceptable. Continue to monitor. //Hypertension-Vasotec as needed, medications need to be reconciled. //Chronic medical conditions including parkinsonism BPH. Continue home medications. Pharmacological prophylaxis contraindicated, SCDs for now. Discharge Planning: f/u gi, pcp, cardiology as outpt for consideration of restarting asa. - Time Spent with Patient Total time spent providing and/or coordinating discharge services: Greater than 30 minutes - Quality: VTE Deep Vein Thrombosis/Pulmonary Embolism Present on Admission: No Exam Vital signs: Vital Signs 04/29/18 15:59 04/29/18 20:00 04/30/18 00:00 Temperature 97.9 F 99.1 F 98.5 F Pulse Rate 68 96 H 62 Respiratory Rate 18 18 18 Blood Pressure 157/73 H 115/55 L 98/56 L Pulse Oximetry 98 98 98 04/30/18 06:40 04/30/18 08:28 04/30/18 08:48 Temperature 98.3 F 98.9 F 98.9 F Pulse Rate 73 96 H 95 H Respiratory Rate 18 15 16 Blood Pressure 156/75 H 126/90 151/87 H Pulse Oximetry 98 100 100 Intake & Output 04/29/18 04/30/18 04/30/18 18:59 06:59 18:59 Intake Total 1200 / 1200 1000 / 1000 500 / 500 Balance 1200 / 1200 1000 / 1000 500 / 500 Intake: IV 1000 / 1000 1000 / 1000 100 / 100 Protonix Inj 80 MG In NS Inj 100 / 100 100 ML @ 10 mls/hr IV.CONT Q10H WOOD Rx#:[id number] NS Inj 1,000 ML @ 100 mls/hr IV 1000 / 1000 1000 / 1000 .CONT .Q10H WOOD Rx#:[id number] Oral 200 / 200 Anesthesia Amount 400 / 400 Other: # Voids 425 3 # Bowel Movements 2 5 Results Procedures completed during hospitalization: colonoscopy. please see report Pending studies at discharge: Pending at discharge 04/30/18 Surgical [PTH] Routine Labs on day of discharge: Labs from last 24 hours 04/30/18 04/30/18 04/30/18 11:04 09:15 09:15 CBC w Diff Auto diff final WBC 10.2 D RBC 3.15 L Hgb 10.3 L Hct 30.4 L MCV 96.5 MCH 32.7 MCHC 33.8 RDW 13.3 Plt Count 159 MPV 8.2 Neut % (Auto) 65.3 Lymph % (Auto) 26.3 [place] % (Auto) 6.3 Eos % (Auto) 1.2 Baso % (Auto) 0.9 Neut # (Auto) 6.7 Lymph # (Auto) 2.7 [place] # (Auto) 0.6 Eos # (Auto) 0.1 Baso # (Auto) 0.1 WBC Differential . Differential Comment . Sodium 141 Potassium 3.5 Chloride 108 H Carbon Dioxide 23.5 Anion Gap 10 BUN 6 L Creatinine 0.75 Estimated GFR Greater than 89 POC Glucose 153 H Random Glucose 120 H Calcium 8.5 Phosphorus 2.1 L Magnesium 1.8 Total Bilirubin 1.0 Direct Bilirubin 0.2 Indirect Bilirubin 0.8 AST 22 ALT 20 Alkaline Phosphatase 54 Total Protein 6.5 D Albumin 3.6 04/30/18 04/30/18 04/29/18 06:17 00:31 20:40 CBC w Diff WBC RBC Hgb 9.1 L Hct MCV MCH MCHC RDW Plt Count MPV Neut % (Auto) Lymph % (Auto) [place] % (Auto) Eos % (Auto) Baso % (Auto) Neut # (Auto) Lymph # (Auto) [place] # (Auto) Eos # (Auto) Baso # (Auto) WBC Differential Differential Comment Sodium Potassium Chloride Carbon Dioxide Anion Gap BUN Creatinine Estimated GFR POC Glucose 113 H 120 H Random Glucose Calcium Phosphorus Magnesium Total Bilirubin Direct Bilirubin Indirect Bilirubin AST ALT Alkaline Phosphatase Total Protein Albumin 04/29/18 04/29/18 19:08 15:05 CBC w Diff WBC RBC Hgb Hct MCV MCH MCHC RDW Plt Count MPV Neut % (Auto) Lymph % (Auto) [place] % (Auto) Eos % (Auto) Baso % (Auto) Neut # (Auto) Lymph # (Auto) [place] # (Auto) Eos # (Auto) Baso # (Auto) WBC Differential Differential Comment Sodium Potassium Chloride Carbon Dioxide Anion Gap BUN Creatinine Estimated GFR POC Glucose 205 H 124 H Random Glucose Calcium Phosphorus Magnesium Total Bilirubin Direct Bilirubin Indirect Bilirubin AST ALT Alkaline Phosphatase Total Protein Albumin - Impressions ITS Impressions Abdomen/Pelvis CT 04/27/18 23:10 CONCLUSION: 1. No acute abnormality in the abdomen or pelvis. 2. 3 mm subpleural bilateral lung nodules. Sub-6 mm nodules do not require routine follow-up per 2017 Fleischner criteria. 3. Sigmoid diverticulosis without definitive evidence for diverticulitis. 4. Additional ancillary findings, as above. Chest X-Ray 04/27/18 23:10 CONCLUSION: 1. No acute abnormality or significant interval change. Discharge Plan - Discharge Disposition Patient Disposition: 01 Discharge Home - Discharge Condition Condition: Good - Discharge Order Discharge Orders: Discharge Order (Routine); Ordered 04/30/18 Ordered By: Obdulio Pepe - Discharge Details Anticipated Discharge Date: 04/30/18 Discharge Comment: patient will need to followup with primary care meet - Physicians Team Primary Care Provider: Regi Gramajo Attending Provider: Obdulio Pepe Other Providers: Madi Lockett MD ; Z[employer]
[2018-04-30 18:08] LABS: % Iron Saturation 24.4 % (20-50)
== END 2018-04-30 14:29 | disposition home or self-care (01) ==
LOC: PHED 21:21 → PHEDA 04-28 01:05 → INTOOBSV 04-28 01:05 → PHICU 04-28 02:17 → PH3 04-28 15:41
PROVIDERS: ADMIT Internal Medicine; ATTEND Internal Medicine
PROC: COLONOS (2018-04-30 07:37)
CPT/HCPCS: 71010; 71045; 74176; 80048; 80053; 80069; 80076; 81001; 82140; 82607; 82728; 82948; 82962; 83540; 83550; 83690; 83735; 84484; 85014; 85018; 85025; 85027; 85610; 85730; 86850; 86900; 86901; 86923; 88305; 90761; 90765; 90775; 93005; 96361; 96365; 96366; 96372; 96375; 96376; 99285; C9113; G0378; J2405; J7030